=== PATIENT | female | born 1985 | race American Indian/Alaskan Native ===

== ENCOUNTER 2021-05-12 10:43 | Emergency (ER) | payer OTHER ==
[2021-05-12 12:03] VITALS: BP 156/73
--- NOTE | 2021-05-12 12:47 | Emergency Department Report ---
ED Back Pain/Injury HPI - General Chief Complaint: Back Pain/Injury Stated Complaint: BACK PAIN Time Seen by Provider: 05/12/21 12:15 Source: patient Limitations: No Limitations - History of Present Illness Initial Comments: 36-year-old female with a past medical history of asthma presents to the ER today with complaints of low back pain. Patient states that her pain started a bout 2 days ago. She states that it started after she bent over to seed cone picker a box. She states that it was raining, her garage was falling, and she was in a lizama to move the box and when she bent over she felt the pain in her lower back. She states that the pain has been constant since it started. She states that it seems to be worse when she goes from a sitting to a standing position, and when she walks. She states that she has been taking Tylenol without much relief of the pain. She states that does not radiate, she has no associated UTI no bowel bladder incontinence, lower extremity weakness, lower extremity paresthesias or saddle anesthesia. She denies any associate abdominal pain or chest pain. She denies fever or chills. She states that she has never had issues with her back in the past. MD Complaint: back pain -: days(s) (2) - Related Data Previous Rx's Medication Instructions Recorded Last Taken Type Ketorolac [Toradol] 10 mg PO Q6H PRN #20 tablet 05/12/21 Unknown Rx Metaxalone [Skelaxin] 800 mg PO TID PRN #30 tablet 05/12/21 Unknown Rx Allergies Allergy/AdvReac Type Severity Reaction Status Date / Time No Known Allergies Allergy Verified 05/12/21 12:00 ED Review of Systems ROS: Stated complaint: BACK PAIN Other details as noted in HPI Comment: All other systems reviewed and negative Constitutional: denies: chills, fever Eyes: denies: eye pain, eye discharge, vision change ENT: denies: ear pain, throat pain, dental pain, hearing loss, epistaxis, congestion Respiratory: denies: cough, shortness of breath, SOB with exertion, SOB at rest, wheezing Cardiovascular: denies: chest pain, palpitations, dyspnea on exertion, edema, syncope, paroxysmal nocturnal dyspnea Gastrointestinal: denies: abdominal pain, nausea, diarrhea, constipation, hematemesis, melena, hematochezia Genitourinary: denies: urgency, dysuria, frequency, hematuria, discharge, abnormal menses, dyspareunia Musculoskeletal: back pain Skin: denies: rash, lesions Neurological: denies: headache, weakness, numbness, paresthesias, confusion, abnormal gait, vertigo Psychiatric: denies: anxiety, depression, auditory hallucinations, visual hallucinations, homicidal thoughts, suicidal thoughts Hematological/Lymphatic: denies: easy bleeding, easy bruising, swollen glands ED Past Medical Hx - Past Medical History Previous Medical History?: No - Surgical History Past Surgical History?: No - Medications Home Medications: Home Medications Medication Instructions Recorded Confirmed Last Taken Type Ketorolac [Toradol] 10 mg PO Q6H PRN #20 tablet 05/12/21 Unknown Rx Metaxalone [Skelaxin] 800 mg PO TID PRN #30 tablet 05/12/21 Unknown Rx ED Physical Exam - General Limitations: No Limitations General appearance: alert, in no apparent distress - Head Head exam: Present: atraumatic, normocephalic, normal inspection - Eye Eye exam: Present: normal appearance, PERRL, EOMI Pupils: Present: normal accommodation - Neck Neck exam: Present: normal inspection, full ROM - Respiratory Respiratory exam: Present: normal lung sounds bilaterally. Absent: respiratory distress, wheezes, rales, rhonchi - Cardiovascular Cardiovascular Exam: Present: regular rate, normal rhythm, normal heart sounds - GI/Abdominal GI/Abdominal exam: Present: soft. Absent: distended, tenderness, guarding, rebound - Back Exam Back exam: Present: normal inspection, full ROM (Mildly decreased on flexion.), other (No tenderness to palpation along the paraspinal muscles nor the lumbar spine. Pain is more so on flexion, and rotation to the left.). Absent: CVA tenderness (R), CVA tenderness (L), paraspinal tenderness, vertebral tenderness, rash noted - Neurological Exam Neurological exam: Present: alert, oriented X3, CN II-XII intact, normal gait. Absent: motor sensory deficit - Psychiatric Psychiatric exam: Present: normal affect, normal mood - Skin Skin exam: Present: intact ED Course Vital Signs 05/12/21 12:01 Temperature 98.4 F Pulse Rate 84 Respiratory 16 Rate Blood Pressure 156/73 [Left] O2 Sat by Pulse 100 Oximetry ED Medical Decision Making - Medical Decision Making The patient presented with acute back pain. The patient is resting comfortably and , is alert, talkative, interactive and in no distress. The patient is neurologically intact and is ambulatory in the ED. the patient has no fever, no bowel or bladder incontinence, no saddle anesthesia and is otherwise alert and well-appearing. With history, physical examination and diagnostic testing does not suggest the presence of acute spinal epidural abscess, acute epidural bleed, cauda equina syndrome, abdominal/thoracic aortic aneurysm, aortic dissection or other acute process requiring further testing, treatment or consultation in the emergency department. The vital signs have been stable. Suspect lumbar strain and lumbar spasm at this time. Discussed suspected diagnosis and treatment modification. The patient condition is stable and appropriate for discharge. The patient will pursue further outpatient evaluation with the primary care physician or other designated. Critical care attestation.: If time is entered above; I have spent that time in minutes in the direct care of this critically ill patient, excluding procedure time. ED Disposition Clinical Impression: Lumbar strain, Lumbar paraspinal muscle spasm Disposition: HOME / SELF CARE / HOMELESS Is pt being admited?: No Does the pt Need Aspirin: No Condition: Stable Instructions: Muscle Cramps and Spasms, [id number], Lumbar Strain Additional Instructions: I recommend that you take the muscle relaxer as well as the Toradol as prescribed. I do recommend that you follow the back stretching exercises listed on your discharge instructions. If your pain continues into another 1 to 2 weeks I do recommend following up with your primary care doctor for referral to an orthospine specialist. Return to the ER if your symptoms worsens in any way. Prescriptions: Metaxalone [Skelaxin] 800 mg PO TID PRN #30 tablet PRN Reason: Muscle Spasm Ketorolac [Toradol] 10 mg PO Q6H PRN #20 tablet PRN Reason: Pain Referrals: GISSELL MIRELES MD [Staff Physician] - 3-5 Days Forms: Work/School Release Form(ED) Time of Disposition: 12:48
[2021-05-12] MEDS ORDERED: KETOROLAC 10 MG TAB PO ONE (12:48)
[2021-05-12] MEDS ORDERED: DEXAMETHASONE 4 MG TAB PO ONE (12:48)
== END 2021-05-12 14:17 | disposition home or self-care (01) ==
LOC: ED 10:43
DX: S39.012A Strain of muscle, fascia and tendon of lower back, initial encounter (principal); M62.838 Other muscle spasm; Z79.899 Other long term (current) drug therapy; X58.XXXA Exposure to other specified factors, initial encounter; Y93.89 Activity, other specified; Y92.89 Other specified places as the place of occurrence of the external cause; Y99.8 Other external cause status
CPT/HCPCS: 99282; J8540